=== PATIENT | female | born 1965 | race African-American/Black ===

== ENCOUNTER 2017-07-22 10:06 | Emergency (ER) | payer OTHER ==
[~2017-07-22] VITALS: Ht 162.6 cm; Wt 58.0 kg
[2017-07-22 10:10] VITALS: Ht 162.6 cm; Wt 58.0 kg
[2017-07-22 12:18] VITALS: BP 120/64
== END 2017-07-22 12:18 | disposition home or self-care (01) ==
LOC: ED 10:06
DX: T22.241A Burn of second degree of right axilla, initial encounter (principal); T22.20XA Burn of second degree of shoulder and upper limb, except wrist and hand, unspecified site, initial encounter; T31.0 Burns involving less than 10% of body surface; Y27.2XXA Contact with hot fluids, undetermined intent, initial encounter; Y93.89 Activity, other specified; Y99.8 Other external cause status; Y92.89 Other specified places as the place of occurrence of the external cause
CPT/HCPCS: J2270

== ENCOUNTER 2017-07-24 07:57 | Emergency (ER) | payer OTHER ==
[~2017-07-24] VITALS: Ht 162.6 cm; Wt 62.6 kg
[2017-07-24 08:06] VITALS: Ht 162.6 cm; Wt 62.6 kg
[2017-07-24 11:49] VITALS: BP 105/68
== END 2017-07-24 11:56 | disposition home or self-care (01) ==
LOC: ED 07:57
DX: T22.00XD Burn of unspecified degree of shoulder and upper limb, except wrist and hand, unspecified site, subsequent encounter (principal); X08.8XXD Exposure to other specified smoke, fire and flames, subsequent encounter